=== PATIENT | female | born 1925 | race Caucasian/White ===

== ENCOUNTER 2017-02-11 13:21 | Emergency (ER) | payer MEDICARE, OTHER ==
[~2017-02-11] VITALS: Ht 152.4 cm; Wt 60.0 kg
[2017-02-11] MEDS ORDERED: LIDOCAINE 1%/EPI 30 ML INJ INJ STA (13:26)
[2017-02-11 13:30] VITALS: Ht 152.4 cm; Wt 60.0 kg
[2017-02-11] MEDS ORDERED: LIDOCAINE 1% (MDV) 20 ML INJ SC ONE (14:00)
--- NOTE | 2017-02-11 14:35 | RADRPT ---
PROCEDURE: CT Brain without contrast. CLINICAL INDICATION: Headaches. Neurologic deficit TECHNIQUE: A CT of the brain was performed on multidetector high-resolution CT scanner utilizing a xial sections from the skull base through the vertex without contrast. One or more of the following dose reduction techniques were used: Automated exposure control, Adjustment of the mA and/or kV acc ording to patient size, and/or use of iterative reconstruction technique. DOSE: CTDI = 45 mGy and the DLP = 630 mGy-cm. COMPARISON: None available FINDINGS: Right frontal scalp swelling and laceration. No acute skull fracture identified. No acute intracrani al hemorrhage, significant mass effect or midline shift. Patchy hypoattenuation of the cerebral whit e matter is age indeterminate but may represent mild subacute to chronic microvascular ischemic jeter ges. Vascular calcifications. Prominence of the cortical sulci and ventricles are related to mild c erebral volume loss. No significant opacification of the visualized paranasal sinuses or mastoids. IMPRESSION: Right frontal scalp swelling and laceration. No acute skull fracture identified. No acute intracranial findings. Mild subacute to chronic microvascular disease and intracranial atherosclerosis. RPTAT: AA .Moise Waters MD, MD Date Time Electronically viewed and signed by .Moise Waters MD, on 02/11/2017 14:34 .T/
--- NOTE | 2017-02-11 14:39 | RADRPT ---
PROCEDURE: CT Cervical Spine without contrast. CLINICAL INDICATION: Trauma, neck pain. TECHNIQUE: A CT of the cervical spine was performed on a multidetector CT scanner utilizing high-r esolution axial imaging from the skull base through the cervical thoracic junction. Sagittal and co radha reconstructions were performed. CTDI: 22 mGy. DLP: 409 mGycm. One or more of the following dose reduction techniques were used: Automated exposure control, Adjustment of the mA and/or kV acc ording to patient size, and/or use of iterative reconstruction technique. COMPARISON: None available. FINDINGS: No acute cervical vertebral fracture or subluxation. Severe multilevel degenerative changes. Enlarged, multinodular thyroid gland. Carotid and aortic atherosclerosis IMPRESSION: No acute cervical vertebral fracture or subluxation. Severe multilevel degenerative changes. RPTAT: AA .Moise Waters MD, Date Time Electronically viewed and signed by .Moise Waters MD, on 02/11/2017 14:38 .T/
[2017-02-11] MEDS ORDERED: CARV12.579 PO (15:08)
[2017-02-11] MEDS ORDERED: LISI1TAB6 PO (15:08)
[2017-02-11] MEDS ORDERED: DICL50TA11 PO (15:09)
[2017-02-11] MEDS ORDERED: CRES10 PO (15:09)
[2017-02-11] MEDS ORDERED: HYDR-906 PO (15:10)
[2017-02-11] MEDS ORDERED: FURO40TA4 PO (15:10)
[2017-02-11] MEDS ORDERED: OMEP10CA4 PO (15:11)
[2017-02-11] MEDS ORDERED: DOCU-159 PO (15:11)
--- NOTE | 2017-02-11 15:11 | RADRPT ---
PROCEDURE: XR Chest. CLINICAL INDICATION: Chest pain. TECHNIQUE: PA and lateral views of the chest was obtained. COMPARISON: None FINDINGS: The aorta is tortuous and atherosclerotic. The cardiomediastinal silhouette is otherwise borderline in size. Diffuse interstitial markings are seen. No dense consolidation or pleural effusion is seen . The soft tissues and osseous structures demonstrate benign age related senescent changes. 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 IMPRESSION: Diffuse interstitial markings. RPTAT: HPNM Physician Leonardo Date Time Electronically viewed and signed by Physician Leonardo on 02/11/2017 15:11 /
[2017-02-11 15:35] LABS: ADD SCAN DIFF NO
[2017-02-11 15:36] LABS: BASOPHILS % 0.5 % (0.0-2.0); EOSINOPHILS # 0.3 10^3/ul (0.0-0.5); EOSINOPHILS % 4.4 % (0.0-7.0); HEMATOCRIT 29.6 % (37.0-47.0); LYMPHOCYTES # 1.6 10^3/ul (0.8-2.9); LYMPHOCYTES % 27.5 % (15.0-51.0); MEAN CORPUSCULAR HEMOGLOBIN 27.5 pg (29.0-33.0); MEAN CORPUSCULAR HGB CONC 30.4 g/dl (32.0-37.0); MEAN CORPUSCULAR VOLUME 90.5 fl (82.0-101.0); MEAN PLATELET VOLUME 10.3 fl (7.4-10.4); MONOCYTE # 0.4 10^3/ul (0.3-0.9); NEUTROPHIL # 3.5 10^3/ul (1.6-7.5); NEUTROPHILS % 60.4 % (39.0-77.0); PLATELET COUNT 176 10^3/UL (140-415); RED BLOOD COUNT 3.27 10^6/ul (4.20-5.40); RED CELL DISTRIBUTION WIDTH 14.3 % (11.5-14.5); WHITE BLOOD COUNT 5.7 10^3/ul (4.8-10.8)
[2017-02-11 15:53] LABS: CHLORIDE 107 mmol/L (97-110); POTASSIUM 4.7 mmol/L (3.5-5.1); SODIUM 143 mmol/L (135-144)
[2017-02-11 15:56] LABS: ANION GAP 16 (8-16); BLOOD UREA NITROGEN 45 mg/dl (7-20); CALCIUM 8.6 mg/dl (8.4-10.2); CARBON DIOXIDE 25 mmol/L (21-31); CREATININE 1.54 mg/dl (0.44-1.00); GLUCOSE 100 mg/dl (70-220)
[2017-02-11 16:06] LABS: TROPONIN-I < 0.012 ng/ml (0.00-0.12)
[2017-02-11 16:13] LABS: ADD UMIC YES; URINE BILIRUBIN (Dip) NEGATIVE (NEGATIVE); URINE BLOOD (Dip) 2+ (NEGATIVE); URINE COLOR LT. YELLOW (YELLOW); URINE GLUCOSE (Dip) NEGATIVE (NEGATIVE); URINE KETONES (Dip) NEGATIVE (NEGATIVE); URINE LEUKOCYTE ESTERASE (Dip) NEGATIVE (NEGATIVE); URINE NITRITE (Dip) NEGATIVE (NEGATIVE); URINE TOTAL PROTEIN (Dip) NEGATIVE (NEGATIVE); URINE UROBILINOGEN (Dip) 0.2 E.U./dL (0.1-1.0)
[2017-02-11 16:28] LABS: BACTERIA,URINE FEW; URINE RBCS 25-50 /HPF (0)
[2017-02-11] MEDS ORDERED: SOD CHLORIDE 0.9% 500 ML IV ONE (16:30)
[2017-02-11] MEDS ORDERED: TYL500 PO (16:35)
--- NOTE | 2017-02-11 16:43 | ERD ---
ER Documentation Chief Complaint Date/Time DATE: 02/11/17 TIME: 16:40 Chief Complaint FALL AT THE ADULT DAY CARE LACERATION TO RIGHT UPPER FOREHEAD ROS All systems reviewed and are negative except as per history of present illness. Medications Home Meds Active Scripts Acetaminophen* (Tylenol*) 500 Mg Tab, 500 MG PO Q4H Y for MILD PAIN LEVEL 1-3, # 20 TAB Prov:MAURO PEREZ DO 02/11/17 Reported Medications Docusate Sodium* (Docusate Sodium*) Unknown Strength Capsule, MG PO, #30 CAP 02/11/17 Omeprazole* (Omeprazole*) Unknown Strength Capsule.dr, MG PO, #30 CAP 02/11/17 Hydrocodone/Acetaminophen ([place] 5-325 Tablet) 1 Each Tablet, 1 EACH PO Q6H, TAB 02/11/17 Furosemide* (Furosemide*) 40 Mg Tablet, 40 MG PO DAILY, TAB 02/11/17 Diclofenac Sodium* (Diclofenac Sodium*) 50 Mg Tablet.dr, 50 MG PO BID, #60 TAB 02/11/17 Rosuvastatin Calcium* (Crestor*) 10 Mg Tablet, 10 MG PO DAILY, #30 TAB 02/11/17 Carvedilol* (Carvedilol*) 12.5 Mg Tablet, 12.5 MG PO BID, #60 TAB 02/11/17 Lisinopril/Hydrochlorothiazide (Lisinopril-Hctz 20-12.5 mg Tab) 1 Each Tablet, 1 EACH PO DAILY, TAB 02/11/17 Allergies Allergies: Coded Allergies: No Known Allergy (Unverified , 02/11/17) PMhx/Soc Hx Alcohol Use: No Hx Substance Use: No Hx Tobacco Use: No Smoking Status: Never smoker Physical Exam Vitals Vital Signs Date Time Temp Pulse Resp B/P Pulse Ox O2 Delivery O2 Flow Rate FiO2 02/11/17 13:30 98.1 71 20 148/68 100 Physical Exam Const: [] Head: Atraumatic Eyes: Normal Conjunctiva ENT: Normal External Ears, Nose and Mouth. Neck: Full range of motion..~ No meningismus. Resp: Clear to auscultation bilaterally Cardio: Regular rate and rhythm, no murmurs Abd: Soft, non tender, non distended. Normal bowel sounds Skin: No petechiae or rashes Back: No midline or flank tenderness Ext: No cyanosis, or edema Neur: Awake and alert Psych: Normal Mood and Affect Result Diagram: 02/11/17 1528 02/11/17 1528 Results 24 hrs Laboratory Tests Test 02/11/17 15:28 02/11/17 15:42 White Blood Count 5.710^3/ul Red Blood Count 3.2710^6/ul Hemoglobin 9.0g/dl Hematocrit 29.6% Mean Corpuscular Volume 90.5fl Mean Corpuscular Hemoglobin 27.5pg Mean Corpuscular Hemoglobin Concent 30.4g/dl Red Cell Distribution Width 14.3% Platelet Count 15102^3/UL Mean Platelet Volume 10.3fl Neutrophils % 60.4% Lymphocytes % 27.5% Monocytes % 7.0% Eosinophils % 4.4% Basophils % 0.5% Nucleated Red Blood Cells % 0.0/100WBC Neutrophils # 3.510^3/ul Lymphocytes # 1.610^3/ul Monocytes # 0.410^3/ul Eosinophils # 0.310^3/ul Basophils # 0.010^3/ul Nucleated Red Blood Cells # 0.010^3/ul Sodium Level 143mmol/L Potassium Level 4.7mmol/L Chloride Level 107mmol/L Carbon Dioxide Level 25mmol/L Anion Gap 16 Blood Urea Nitrogen 45mg/dl Creatinine 1.54mg/dl Glucose Level 100mg/dl Calcium Level 8.6mg/dl Troponin I < 0.012ng/ml Urine Color LT. YELLOW Urine Clarity CLEAR Urine pH 5.0 Urine Specific [place] 1.020 Urine Ketones NEGATIVE Urine Nitrite NEGATIVE Urine Bilirubin NEGATIVE Urine Urobilinogen 0.2 E.U./dL Urine Leukocyte Esterase NEGATIVE Urine Microscopic RBC 25-50/HPF Urine Microscopic WBC 0-2/HPF Urine Amorphous Urates FEW Urine Bacteria FEW Urine Hemoglobin 2+ Urine Glucose NEGATIVE% Urine Total Protein NEGATIVE Current Medications Medications (Trade) Dose Ordered Sig/Arash Route PRN Reason Start Time Stop Time Status Last Admin Dose Admin Lidocaine/ Epinephrine (Xylocaine 1%/ Epi) 30 ml ONCE STAT INJ 02/11/17 13:26 02/11/17 13:49 DC Lidocaine 20 ml 20 ml ONCE ONCE SC 02/11/17 14:00 02/11/17 14:01 DC Sodium Chloride (NS) 500 ml @ 500 mls/hr Q1H ONCE IV 02/11/17 16:30 02/11/17 17:29 02/11/17 16:32 Procedures/MDM Elderly female with likely mechanical fall. Full workup was performed because of her age and that she has fallen more than once this month. She has no signs of cardiac ischemia. She was observed for sometime in the ER with completely no change in mental status and full alertness. monitoring analyst without arrhythmias. No signs of any infection. She does have mild renal insufficiency and was given 500 cc of IV fluid. Laceration to her forehead was sutured. Patient is not on blood thinners and EKG interpretation: Normal sinus rhythm rate of 67, normal axis, no ST or T- wave changes in concerning for acute ischemia, normal intervals. Normal EKG. Departure Diagnosis: Primary Impression: Laceration of forehead Additional Impressions: Head injury Renal insufficiency Condition: Stable Patient Instructions: HEAD INJURY, No Wake-Up (Adult), Laceration, Face ( Suture Or Tape), Renal Insufficiency Additional Instructions: Call your primary care doctor TOMORROW for an appointment during the next 2-3 days.See the doctor sooner or return here if your condition worsens before your appointment time. MAURO PEREZ DO Feb 11, 2017 16:43
[2017-02-11 16:55] VITALS: BP 140/78; PULSE 80; RESP 20
== END 2017-02-11 16:56 | disposition home or self-care (01) ==
LOC: E/R 13:21
DX: S01.81XA Laceration without foreign body of other part of head, initial encounter (principal); S09.90XA Unspecified injury of head, initial encounter; N28.9 Disorder of kidney and ureter, unspecified; R07.9 Chest pain, unspecified; W18.39XA Other fall on same level, initial encounter; Y92.89 Other specified places as the place of occurrence of the external cause
CPT/HCPCS: 12011; 36415; 70450; 71010; 72125; 80048; 81001; 84484; 85025; 93005; 99285; J7040; 81003